=== PATIENT | female | born 1980 | race African-American/Black ===

== ENCOUNTER 2017-11-16 20:38 | Emergency (ER) | payer MEDICAID, OTHER ==
[~2017-11-16] VITALS: Ht 149.9 cm; Wt 91.0 kg
[2017-11-16] MEDS ORDERED: LORAZEPAM 1MG TABLET PO ONE (23:30)
[2017-11-17 00:15] VITALS: BP 112/72
== END 2017-11-17 00:45 | disposition home or self-care (01) ==
LOC: ER 20:38
DX: F41.9 Anxiety disorder, unspecified (principal); R06.00 Dyspnea, unspecified; R00.2 Palpitations; F12.10 Cannabis abuse, uncomplicated; R03.0 Elevated blood-pressure reading, without diagnosis of hypertension; F17.200 Nicotine dependence, unspecified, uncomplicated
CPT/HCPCS: 99282; Z7610